=== PATIENT | female | born 1985 | race Caucasian/White ===

== ENCOUNTER 2016-06-21 15:25 | Inpatient (IN) ==
[2016-06-22] MEDS ORDERED: REGLAN PO ONE (20:42)
[2016-06-22] MEDS ORDERED: ZOFRAN IV PRN (20:42)
[2016-06-22] MEDS ORDERED: BRETHINE SUBQ PRN (20:42)
[2016-06-22] MEDS ORDERED: KEFZOL 1 GM/D5W 1 GM/50 ML IVPB IV PRN (20:42)
[2016-06-22] MEDS ORDERED: AMBIEN PO PRN (20:42)
[2016-06-22] MEDS ORDERED: STADOL IV PRN ×3 (20:42)
[2016-06-22] MEDS ORDERED: PEPCID PO ONE (20:42)
[2016-06-22] MEDS ORDERED: PEPCID PO PRN (20:42)
[2016-06-22] MEDS ORDERED: PEPCID IV PRN (20:42)
[2016-06-22] MEDS ORDERED: TYLENOL PO PRN (20:42)
[2016-06-22] MEDS: LR 1,000 ML IV ONE (21:40)
[2016-06-22 22:20] LABS: MANUAL DIFF NEEDED? NO
[2016-06-22 22:22] LABS: BASO% 0.3 % (0.0-0.8); EOS# 0.12 X1000 (0.0-0.7); EOS% 1.4 % (0.0-10.0); HEMATOCRIT 30.4 % (37.0-47.0); IMM GRAN# 0.02 X1000 (0.0-0.04); IMM GRAN% 0.2 % (0.0-0.5); LYMPH# 1.89 X1000 (1.2-3.4); LYMPH% 21.5 % (20.5-51.1); MCH 27.8 PG (27-31); MCHC 32.9 g/dL (33-37); MCV 84.4 FL (81-99); MONO# 0.72 X1000 (0.11-0.59); MONO% 8.2 % (1.7-9.3); MPV 11.8 FL (7.4-10.4); NEUT% 68.4 % (42.2-75.2); PLT 182 X1000 (130-400)
[2016-06-22] MEDS ORDERED: CYTOTEC VAG ONE (23:00)
[2016-06-22 23:09] LABS: UR AMPHETAMINES QUAL NONE DETECTED (NONE DETECT); UR BARBITUATES QUAL NONE DETECTED (NONE DETECT); UR BENZODIAZEPIN QUAL NONE DETECTED (NONE DETECT); UR CANNABINOIDS QUAL NONE DETECTED (NONE DETECT); UR COCAINE QUAL NONE DETECTED (NONE DETECT); UR MDMA QUAL NONE DETECTED (NONE DETECT); UR METHADONE QUAL NONE DETECTED (NONE DETECT); UR METHAMPHETAMINE QUAL NONE DETECTED (NONE DETECT); UR OPIATES QUAL NONE DETECTED (NONE DETECT); UR OXYCODONE QUAL NONE DETECTED (NONE DETECT); UR PCP QUAL NONE DETECTED (NONE DETECT); UR TCA QUAL NONE DETECTED (NONE DETECT)
[2016-06-23] MEDS: CYTOTEC VAG SCH ×2 (03:32→09:32)
[2016-06-23] MEDS: LR 1,000 ML IV ONE (05:23)
[2016-06-23] MEDS ORDERED: PITOCIN 30 UNITS/LR 30 UNITS/500 ML IV.SOLN IV SCH (08:00)
[2016-06-23] MEDS ORDERED: FENTANYL-BUPIV-NS 2 MCG-0.1% 200 ML EPIDURAL PRN (08:39)
[2016-06-23] MEDS ORDERED: MARCAINE 0.25% PF ONE (08:43)
[2016-06-23] MEDS ORDERED: MARCAINE 0.25% PF INJ ONE (08:45)
[2016-06-23] MEDS: LR 1,000 ML IV SCH ×4 (09:00→22:08)
--- NOTE | 2016-06-23 18:05 | OB/GYN PROGRESS NOTE ---
Progress Note OB - . OB Progress Note: Vital Signs - 24 hr 06/22/16 22:37 06/23/16 00:00 06/23/16 04:00 Temperature 97.3 F L Pulse Rate 90 86 83 Respiratory Rate 20 20 20 Blood Pressure 111/79 126/86 123/77 O2 Sat by Pulse Oximetry 99 98 96 Laboratory Results - last 24 hr 06/22/16 06/22/16 06/22/16 20:30 22:00 22:00 WBC 8.78 RBC 3.60 L Hgb 10.0 L Hct 30.4 L MCV 84.4 MCH 27.8 MCHC 32.9 L RDW Std Deviation 14.7 H Plt Count 182 MPV 11.8 H Immature Gran % (Auto) 0.2 Neut % (Auto) 68.4 Lymph % (Auto) 21.5 Colbert % (Auto) 8.2 Eos % (Auto) 1.4 Baso % (Auto) 0.3 Immature Gran # (Auto) 0.02 Neut # (Auto) 6.00 Lymph # (Auto) 1.89 Colbert # (Auto) 0.72 H Eos # (Auto) 0.12 Baso # (Auto) 0.03 Urine Opiates Screen NONE DETECTED Ur Oxycodone Screen NONE DETECTED Urine Methadone Screen NONE DETECTED Ur Barbituates Screen NONE DETECTED Ur Tricyclics Screen NONE DETECTED Ur Phencyclidine Scrn NONE DETECTED Ur Amphetamines Screen NONE DETECTED U Methamphetamines Scrn NONE DETECTED Urine MDMA Screen NONE DETECTED U Benzodiazepines Scrn NONE DETECTED Urine Cocaine Screen NONE DETECTED U Cannabinoids Screen NONE DETECTED RPR NON-REACTIVE Patient resting comfortably with no complaints. 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
[2016-06-24] MEDS ORDERED: XYLOCAINE-MPF 1% ONE (05:47)
[2016-06-24] MEDS ORDERED: PITOCIN 20 UNITS/LR 20 UNITS/1,000 ML IV.SOLN ONE (07:05)
[2016-06-24] MEDS ORDERED: PITOCIN 30 UNITS/LR 30 UNITS/500 ML IV.SOLN IV ONE (07:33)
[2016-06-24] MEDS ORDERED: HYDROXYZINE PO PRN (07:33)
[2016-06-24] MEDS ORDERED: BENADRYL IV PRN (07:33)
[2016-06-24] MEDS ORDERED: AMBIEN PO PRN (07:33)
[2016-06-24] MEDS ORDERED: CYTOTEC PO PRN (07:33)
[2016-06-24] MEDS ORDERED: PITOCIN 20 UNITS/LR 20 UNITS/1,000 ML IV.SOLN IV SCH (07:33)
[2016-06-24] MEDS ORDERED: BENADRYL PO PRN (07:33)
[2016-06-24] MEDS ORDERED: XYLOCAINE-MPF 1% INJ PRN (07:33)
[2016-06-24] MEDS ORDERED: PERI MEDS (DERMOPLAST/NUPERCAINAL/TUCKS) MISC PRN (07:33)
[2016-06-24] MEDS ORDERED: PERCOCET-5 PO PRN (07:33)
[2016-06-24] MEDS ORDERED: MINERAL OIL PO PRN (07:33)
[2016-06-24] MEDS ORDERED: PERCOCET-10 PO PRN (07:33)
[2016-06-24] MEDS ORDERED: HYDROXYZINE IM PRN (07:33)
[2016-06-24] MEDS ORDERED: PITOCIN IM PRN (07:33)
[2016-06-24] MEDS: MOTRIN PO PRN (07:51)
[2016-06-24] MEDS: PERICOLACE PO SCH (21:02)
--- NOTE | 2016-06-24 22:31 | OPERATIVE NOTE ---
PROCEDURE DATE: 06/24/16 ADMISSION DIAGNOSIS: 30-year-old G1, P0 at 40 weeks and 1 days admitted for induction of labor. DELIVERY DATE: 06/24/2016. DELIVERING PHYSICIAN: Dr. Kathy Vora. DELIVERY: Vacuum acute care certified nursing assistant vaginal delivery. DELIVERY SUMMARY: This 30-year-old G1, P0 at 40 weeks and 3 days who underwent induction of labor was found to be complete, complete +3. After maternal exhaustion was noted and category 2 tracing decision was made to perform a vacuum assisted vaginal delivery. The kiwi vacuum was placed between the anterior and posterior fontanelle of the 's head and a right mediolateral episiotomy was made. There were 3 pop offs. The head was then delivered atraumatically using the Ritgen's maneuver with assistance from the nurse. The was then placed on the mother's abdomen with the Pediatric team in attendance. The cord was clamped and cut. The baby was bulb suctioned at delivery and taken to [facility] warm. Cord blood was obtained. The placenta was delivered spontaneously intact, 3 cord vessel was noted. The episiotomy created a second- degree perineal laceration which was repaired with a 2-0 Vicryl suture in a normal fashion. Good hemostasis was noted. Delivered from left occiput anterior position was a female weighing 7 pounds 7 ounces with scores of 3, 5 and 8. Mother and baby were stable in the delivery room. Baby was taken to the nursery for further attendance. cc: Kathy Vora MD MTDD
[2016-06-25 06:19] LABS: MANUAL DIFF NEEDED? NO
[2016-06-25 06:22] LABS: BASO% 0.1 % (0.0-0.8); EOS% 0.6 % (0.0-10.0); HEMATOCRIT 22.6 % (37.0-47.0); HEMOGLOBIN 7.4 g/dL (12.0-16.0); IMM GRAN# 0.09 X1000 (0.0-0.04); IMM GRAN% 0.5 % (0.0-0.5); LYMPH# 1.79 X1000 (1.2-3.4); MCH 27.9 PG (27-31); MCHC 32.7 g/dL (33-37); MCV 85.3 FL (81-99); MONO# 1.05 X1000 (0.11-0.59); MONO% 5.9 % (1.7-9.3); MPV 11.8 FL (7.4-10.4); NEUT% 82.9 % (42.2-75.2); PLT 155 X1000 (130-400); RBC 2.65 XMIL (4.2-5.4)
[2016-06-25] MEDS: MOTRIN PO PRN (08:55)
[2016-06-25] MEDS: FERROUS SULFATE PO SCH ×2 (12:28→20:59)
[2016-06-25] MEDS: PERICOLACE PO SCH (20:59)
--- NOTE | 2016-06-25 21:57 | OB/GYN PROGRESS NOTE ---
Progress Note OB - . OB Progress Note: Vital Signs - 24 hr 06/25/16 03:32 06/25/16 08:00 06/25/16 16:00 Temperature 98.3 F 98.5 F 97.8 F Pulse Rate 95 H 108 H 93 H Respiratory Rate 18 20 20 Blood Pressure 97/71 109/68 101/68 O2 Sat by Pulse Oximetry 99 99 100 06/25/16 20:54 Temperature 98.5 F Pulse Rate 98 H Respiratory Rate 16 Blood Pressure 106/73 O2 Sat by Pulse Oximetry 99 Laboratory Results - last 24 hr 06/25/16 06/25/16 04:50 04:50 WBC 17.90 H RBC 2.65 L Hgb 7.4 L Hct 22.6 L MCV 85.3 MCH 27.9 MCHC 32.7 L RDW Std Deviation 14.7 H Plt Count 155 MPV 11.8 H Immature Gran % (Auto) 0.5 Neut % (Auto) 82.9 H Lymph % (Auto) 10.0 L Todd % (Auto) 5.9 Eos % (Auto) 0.6 Baso % (Auto) 0.1 Immature Gran # (Auto) 0.09 H Neut # (Auto) 14.85 H Lymph # (Auto) 1.79 Todd # (Auto) 1.05 H Eos # (Auto) 0.10 Baso # (Auto) 0.02 ABO/Rh A NEGATIVE Screen NEGATIVE RhIG Candidate? YES Patient is without complaint. Reports tolerating diet. Pain is well controlled. Ambulating and voiding without difficulty. Bottle feeding. Reports minimal blood loss. 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
[2016-06-26 07:34] VITALS: BP 109/62
[2016-06-26] MEDS: FERROUS SULFATE PO SCH (08:17)
--- NOTE | 2016-08-02 18:20 | DISCHARGE SUMMARY ---
ADMISSION DATE: 06/22/2016 DISCHARGE DATE: 06/26/2016 PROCEDURE DATE: 06/24/2016. PROCEDURE: Vacuum-assisted vaginal delivery. DELIVERING PHYSICIAN: Dr. Kathy Vora. ADMISSION DIAGNOSIS: This is a 30-year-old, G1, P0, at 40 weeks and 1 day, admitted for induction of labor. HOSPITAL COURSE: This 30-year-old, G1, P0, admitted at 40 weeks and 1 day for induction of labor, who underwent a vacuum-assisted vaginal delivery at 40 weeks and 3 days, uncomplicated. Patient's postoperative course was unremarkable and patient was discharged home on postoperative day #2. PHYSICAL EXAMINATION: General: No acute distress. Alert. Abdomen: Fundus firm and at umbilicus. Pelvis: Pad was dry. Extremities: No edema. Nontender. Aldo' s- DISCHARGE INSTRUCTIONS: Patient to have nothing per vagina. Patient may shower. Patient may continue regular diet. DISCHARGE MEDICATIONS: Ibuprofen and ferrous sulfate. FOLLOW-UP: Patient to follow with Dr. Vora in 6 weeks. cc: Kathy Vora MD [facility]
== END 2016-06-26 11:00 | disposition home or self-care (01) ==
LOC: P.LD 06-22 20:27 → P.WC 06-24 16:28
PROVIDERS: ADMIT Student in an Organized Health Care Education/Training Program; ATTEND Student in an Organized Health Care Education/Training Program